=== PATIENT | female | born 1970 | race Caucasian/White ===

== ENCOUNTER → 2023-06-29 13:22 | Outpatient (REF) | payer OTHER, SELFPAY | LOC: HWWDC 13:22 | PROVIDERS: ATTENDING PHYSICIAN Nurse Practitioner Family | DX: Z12.31 Encounter for screening mammogram for malignant neoplasm of breast (principal) | CPT/HCPCS: 77063; 77067 ==

== ENCOUNTER → 2023-07-21 09:24 | Outpatient (REF) | payer OTHER, SELFPAY | LOC: WDC 09:24 | PROVIDERS: ATTENDING PHYSICIAN Nurse Practitioner Family | DX: R92.8 Other abnormal and inconclusive findings on diagnostic imaging of breast (principal) | CPT/HCPCS: 76642 ==

== ENCOUNTER → 2023-09-25 13:43 | Outpatient (REF) | payer OTHER, SELFPAY | LOC: HWRAD 13:43 | PROVIDERS: ATTENDING PHYSICIAN Nurse Practitioner Family | DX: F17.210 Nicotine dependence, cigarettes, uncomplicated (principal) | CPT/HCPCS: 71271 ==

== ENCOUNTER → 2023-12-24 09:33 | Outpatient (REF) | payer MEDICARE, SELFPAY | LOC: RAD 09:33 | PROVIDERS: ATTENDING PHYSICIAN Surgery; FAMILY PHYSICIAN Nurse Practitioner Family | DX: N13.2 Hydronephrosis with renal and ureteral calculous obstruction (principal) | CPT/HCPCS: 74018 ==

== ENCOUNTER 2023-12-26 23:59 | Emergency (ER) | payer MEDICARE, SELFPAY ==
[2023-12-27 00:02] VITALS: BP 146/74
[2023-12-27 00:30] LABS: Urine Albumin Negative (Neg - Trace); Urine Bilirubin Negative (Negative); Urine Character Clear (Clear); Urine Color Yellow; Urine Glucose Negative (Negative); Urine Ketone Negative (Negative); Urine Leukocyte Negative (Negative); Urine Nitrite Negative (Negative); Urine Occult Blood 1+ (Negative); Urine Urobilinogen Negative (Neg - 1+)
[2023-12-27 00:38] LABS: % Basophils 0.3 % (0-2); % Eosinophils 2.6 % (0-6); % Immature Granulocytes 0.5 % (0-0.5); % Lymphocytes 9.8 % (20.5-51.1); % Monocytes 8.5 % (1.7-9.3); % Neutrophils 78.3 % (42.2-75.2); Absolute Eosinophils 0.4 10^3/uL (0-0.7); Absolute Immature Granulocytes 0.1 10^3/uL (0-0.05); Absolute Lymphocytes 1.4 10^3/uL (1.2-3.4); Absolute Monocytes 1.2 10^3/uL (0.1-0.6); Absolute Neutrophils 11.4 10^3/uL (1.4-6.5); Hematocrit 40.2 % (37.0-47.0); Hemoglobin 13.8 g/dL (12.0-16.0); Mean Corp Hgb Conc. 34.3 g/dL (33.0-37.0); Mean Corpuscular Hgb 31.6 pg (27.0-31.0); Mean Platelet Volume 10.1 fL (7.4-10.4); Nucleated Red Blood Cells % 0 %; Platelet Count 391 10^3/uL (130-400); Red Blood Cell Count 4.37 10^6/uL (4.20-5.40); Red Cell Dist. Width 12.4 % (11.5-14.5); White Blood Cell Count 14.6 10^3/uL (4.8-10.8)
[2023-12-27 00:42] LABS: Urine White Cell 0-2 /HPF (0-5)
[2023-12-27 01:02] LABS: ALT (SGPT) 15 U/L (0-35); AST (SGOT) 16 U/L (14-36); Albumin 3.9 g/dl (3.5-5.0); Alkaline Phosphatase 104 U/L (38-126); Blood Urea Nitrogen 21 mg/dl (7-17); Calcium 9.1 mg/dl (8.4-10.2); Carbon Dioxide 22 mmol/L (22-30); Chloride 106 mmol/L (98-107); Glucose 125 mg/dl (70-99); Potassium 4.2 mmol/L (3.5-5.1); Sodium 142 mmol/L (135-145); Total Bilirubin 0.2 mg/dl (0.2-1.3); Total Protein 6.4 g/dl (6.3-8.2); eGFR > 60.00
--- NOTE | 2023-12-27 03:40 | ED.GENMED ---
History of Present Illness
General
Chief Complaint: Abdominal Pain
Source: patient and previous radiology exam (1 view abdominal x-ray performed yesterday)
Exam Limitations: none
Time Seen by Provider: 12/27/23 02:28
Nursing documentation reviewed up to this point in time: agreed with
History of Present Illness
History of Present Illness:
This is a 53-year-old woman with known history of kidney stones who has had intermittent left flank pain off and on for few weeks but over the past few days has noticed some generalized lower abdominal discomfort, lower abdominal bloating
accompanied with some constipation passing small round marble like stools. She also notes intermittent bilateral flank discomfort and some left upper quadrant discomfort as well. Tonight she developed a fever of 101.7 �F. She took Aleve prior to
arrival. She denies dysuria and urgency nor gross hematuria. She does have 1 previous episode of diverticulitis and is unsure if current symptoms feel similar.
She has had no nausea nor vomiting.
She has however been suffering with some chronic sinus issues, following with her PCP and thus far has had no relief despite 2 rounds of antibiotics, amoxicillin 1 month ago and then doxycycline early November. She just finished a course of oral
steroids. She is chronically maintained on Flonase as well as Claritin for her sinus issues.
She had an initial evaluation with urology on Thursday and underwent 1 view abdominal x-ray yesterday which shows questionable 1 mm calculus in the left mid ureter. No radiographic evidence of intrarenal calculi. Moderate stool throughout the colon.
Severe discogenic degenerative disease L4-L5.
Past History
Past History
ED Past Medical History: Hypothyroidism, Psychiatric and Other (Kidney stones, diverticulitis, chronic sinusitis)
ED Past Surgical History: Other (ear)
Social History
Tobacco: Non-smoker
Alcohol: None
Drug: None
Personal: Single
Living: with family
Family History
Family History: Other (Noncontributory)
Phy Exam
Physical Exam
Physical Exam:
GENERAL: 53-year-old woman appears her stated age, awake and alert, pleasant, appears in no acute distress. Borderline low-grade fever noted initially. Upon recheck she is afebrile.
EYE: pupils equal and reactive. anicteric
NECK: Supple, nontender, no meningismus, no significant adenopathy.
ENT: posterior pharynx is clear, oral mucosa is moist. Left TM with scant clear effusion without redness. Right TM is clear. Nares have moderately boggy pale blue turbinates without rhinorrhea nor mucopus.
CARDIAC: Regular rate and rhythm. no murmur.
LUNGS: Clear breath sounds bilaterally, no acute respiratory distress, no wheezes/rales/rhonchi
ABDOMEN: Soft, nondistended, mild generalized tenderness to the lower abdomen with deep palpation only, no r/g, no cvat. normoactive BS.
NEUROLOGICAL: Alert and oriented x3, no focal neuro deficits. Gait is diaz and steady.
SKIN: Warm and dry, normal color, skin intact. No rash.
MUSCULOSKELETAL: No C/C/E. peripheral pulses are full and equal b/l. No palpable tenderness.
PSYCH: Normal and appropriate interaction.
. 53-year-old woman appears her stated age, awake and alert, pleasant, appears in no acute distress.
Course
Orders/Labs/Results
Orders:
Orders
12/27/23 00:15
Complete Blood Count/With Diff Urgent
Comprehensive Metabolic Panel Urgent
Urinalysis Reflex To Culture Urgent
Date Specimen was Collected: 12/27/23
Time Specimen was Collected: 00:10
Urine Microscopic Reflex Cult Urgent
12/27/23 02:37
CT Abd/pelvis W Iv Cont Urgent
Comment:
Reason For Exam: gen lower abd pain, b/l flank pain, fever
12/27/23 06:03
Amoxicillin 875 mg/Clav 125 mg [Augmentin 875 mg/125 mg] 1 tablet PO NOW STA
Abnormal Lab Results
12/27/23
00:15
WBC 14.6 H 10^3/uL
(4.8-10.8)
MCH 31.6 H pg
(27.0-31.0)
Abs Immat Gran (auto) 0.1 H 10^3/uL
(0-0.05)
Absolute Neuts (auto) 11.4 H 10^3/uL
(1.4-6.5)
Absolute Monos (auto) 1.2 H 10^3/uL
(0.1-0.6)
Neutrophils % 78.3 H %
(42.2-75.2)
Lymphocytes % 9.8 L %
(20.5-51.1)
BUN 21 H mg/dl
(7-17)
Glucose 125 H mg/dl
(70-99)
Ur Occult Blood Reflex 1+ A
(Negative)
Urine RBC 3-6 A /HPF
(0-2)
12/27/23 00:15
12/27/23 00:15
Vital Signs
Initial and Last Documented VS:
Initial Vital Signs
Temp Pulse Resp BP Pulse Ox
99.3 F 110 20 146/74 99
12/27/23 00:02 12/27/23 00:02 12/27/23 00:02 12/27/23 00:02 12/27/23 00:02
Last Documented Vital Signs
Temp Pulse Resp BP Pulse Ox
99.3 F 110 20 146/74 99
12/27/23 00:02 12/27/23 00:02 12/27/23 00:02 12/27/23 00:02 12/27/23 00:02
MDM/Problems Addressed
Differential Diagnosis Includes:
Concern for ureteric stone, pyelonephritis, constipation, diverticulitis, less likely appendicitis, colitis.
Labs thus far reveal mildly elevated white blood cell count of 14.6.
Chemistries are unremarkable.
Urinalysis is positive for 3-6 RBCs otherwise unremarkable. No evidence of infection.
Will check CT of the abdomen and pelvis.
*Radiology
Radiology exam reviewed: radiology read reviewed (CAT scan shows moderate wall thickening of the mid sigmoid colon with small amount of stranding adjacent to diverticula, consistent with acute uncomplicated diverticulitis)
*Pulse Oximetry
Patient hypoxic: no
*Critical Care Note
Total Time (30-74mins, 75-104mins- exclusive of procedures): Not Applicable
Update Note
Update Note:
12/27/2023 0604 AM
CAT scan consistent with acute uncomplicated diverticulitis of the sigmoid colon. Moderate amount of stool within the colon as well. There is no obstruction, no intrarenal nor ureteric stones.
Will place patient on a course of Augmentin.
Recommend she limit her diet to clear liquids over the next 2 to 3 days, slowly advancing to bland soft diet. Once solids are introduced recommend she increase her fiber intake by adding Metamucil or FiberCon on a daily basis.
Will refer to GI for follow-up.
Return precautions discussed.
ED Attending Note
-
Portions of this chart may have been created with voice recognition software.� Occasional wrong word or��sound alike� substitutions may have occurred due to the inherent limitations of voice recognition software.
Discharge Plan
Departure
Patient Disposition: Home (Routine Discharge)
Date of Disposition: 12/27/23
Time of Disposition: 06:06
Patient with high blood pressure during this ER visit?: No
Condition: Good
Discharge Problem:
Acute sigmoid diverticulitis
Instructions: Clear Liquid Diet, Diverticulitis (DC)
Prescriptions:
New
amoxicillin-pot clavulanate 875-125 mg tablet
1 tab PO BID Qty: 20 0RF
No Action
levothyroxine 75 mcg Tablet
75 mcg PO DAILY
albuterol sulfate 90 mcg/actuation Hfa Aerosol Inhaler
2 puff INHALATION QID PRN (Reason: sob)
Zyrtec
1 tab PO DAILY PRN (Reason: allergies)
venlafaxine [Effexor XR] 37.5 mg Capsule,Extended Release 24hr
37.5 mg PO DAILY
fluticasone propionate [Flonase] 50 mcg/actuation [place],Suspension
1 spray INTRANASAL DAILY
tamsulosin [Flomax] 0.4 mg Capsule
0.4 mg PO DAILY
Referrals:
Cuca Burrows MD [Active] - Call in 1-3 days for appt
Karen Gonzalez CRNP [Family Provider] - Call in 1-3 days for appt
Interventions
Interventions:
*Risk Screen - Suicide Last Done: 12/27/23 00:05
*General Assessment Last Done: 12/27/23 03:37
*Neglect/Abuse Screening Last Done: 12/27/23 00:05
*ED COVID-19 Vaccine History Last Done: 12/27/23 00:05
RO-Edyajb-Nnvimtqhti Assessment Last Done: 12/27/23 03:37
Discharge Date and Time
Print Language: MALAY
[2023-12-27] MEDS: AUGMENTIN 875 MG/125 MG 1 TABLET PO (06:54)
[2023-12-27 07:03] VITALS: BP 118/78
== END 2023-12-27 07:07 | disposition home or self-care (01) ==
LOC: EMR 23:59
PROVIDERS: EMERGENCY PHYSICIAN Emergency Medicine; FAMILY PHYSICIAN Nurse Practitioner Family
DX: K57.32 Diverticulitis of large intestine without perforation or abscess without bleeding (principal); E03.9 Hypothyroidism, unspecified; J32.9 Chronic sinusitis, unspecified; M51.369 Other intervertebral disc degeneration, lumbar region without mention of lumbar back pain or lower extremity pain; F31.9 Bipolar disorder, unspecified; F32.A Depression, unspecified; F17.200 Nicotine dependence, unspecified, uncomplicated; Z87.442 Personal history of urinary calculi; Z79.899 Other long term (current) drug therapy; Z88.1 Allergy status to other antibiotic agents
CPT/HCPCS: 99284; 74177; 80053; 81003; 81015; 85025; Q9967

== ENCOUNTER 2024-01-07 17:23 | Inpatient (IN) | payer MEDICARE, OTHER, SELFPAY ==
[2024-01-07] VITALS (7 sets, daily range): BP systolic 109–130; BP diastolic 62–83; BMI 19.8
--- NOTE | 2024-01-07 12:41 | ED.GENMED ---
History of Present Illness
<Dede Glez PA-C - Last Filed: 01/07/24 16:33>
General
Chief Complaint: Abdominal Symptoms
Source: patient and records
Time Seen by Provider: 01/07/24 12:14
History of Present Illness
History of Present Illness:
53yoF with a history of hypothyroidism and depression presenting for evaluation of abdominal pain. Patient was seen in the ED on 12/27/[address] showed findings suspicious for mid sigmoid colon uncomplicated diverticulitis. She was
started on a 10 day course of Augmentin and she took the last dose of antibiotics yesterday morning. She is presenting with persistent abdominal discomfort and cramping primarily in the lower abdomen. The pain seems to have worsened since finishing
the antibiotic. She had a bowel movement earlier today which was normal. She denies any fevers, chills, vomiting, hematochezia, dysuria. No previous abdominal surgeries. She had a colonoscopy in 2018 which was reportedly normal.
Past History
<Dede Glez PA-C - Last Filed: 01/07/24 16:33>
Past History
ED Past Medical History: Hypothyroidism, Psychiatric and Other (Kidney stones, diverticulitis, chronic sinusitis)
ED Past Surgical History: Other (ear)
Social History
Tobacco: Non-smoker
Alcohol: None
Drug: None
Personal: Single
Living: with family
Family History
Family History: Other (Noncontributory)
Phy Exam
<Dede Glez PA-C - Last Filed: 01/07/24 16:33>
General Physical Exam
General Presentation: well appearing and no apparent distress
General age: appears stated age
General Skin: warm and dry
General Habitus: normal
General Mental: alert
ENT Exam
ENT Exam: normocephalic
Cardiovascular Exam
Cardiovascular Exam: regular rate/rhythm and no murmur
Pulmonary Exam
Pulmonary Exam: lungs clear, no respiratory distress, no crackles and no wheezing
Gastrointestinal Exam
Gastrointestinal Exam: soft, non distended and other (+Tenderness to RUQ, RLQ, and suprapubic region. Abdomen soft, non-distended. No rebound or guarding. )
Neurological Exam
Neurological Exam: alert
Bobby Coma Scale
Eye Opening: Spontaneous
Verbal Response: Oriented
Motor Response: Obeys Commands
GCS Total Score: 15
Skin Exam
Skin Exam: normal color and warm/dry
Psychiatric Exam
Psychiatric Exam: normal mood/affect
<Golden Palacios PA-C - Last Filed: 01/07/24 17:15>
Bobby Coma Scale
GCS Total Score: 15
Course
<Dede Glez PA-C - Last Filed: 01/07/24 16:33>
Orders/Labs/Results
Orders:
Orders
01/07/24 12:38
CT Abd/pel W Iv And Oral Contr Urgent
Comment:
Reason For Exam: Lower abd pain, recent diverticulitis flare
Iohexol [Omnipaque] See Protocol PO NOW STA
Ketorolac [Toradol] 15 mg IV NOW STA
01/07/24 12:51
Complete Blood Count/With Diff Urgent
Comprehensive Metabolic Panel Urgent
Lipase Urgent
01/07/24 13:03
Urinalysis Reflex To Culture Urgent
Date Specimen was Collected: 01/07/24
Time Specimen was Collected: 12:57
Urine Microscopic Reflex Cult Urgent
01/07/24 16:27
Ciprofloxacin 400 mg/[id number] [Cipro 400 mg] 200 ml IV NOW
MetroNIDAZOLE 500 MG/100 ML [Flagyl 500 mg] 100 ml IV NOW
01/07/24 17:08
Admit/Transfer Patient As Directed
Co-Sign Provider:
Level of Care: Inpatient admission
Assign to:: Medical/Surgical
Physician / Group: Nata Baker
Diagnosis: acute diverticulitis
Reason for Hospitalization: acute diverticulitis, failure outpatient treatment
Expected length of stay greater than two midnights?: Yes
ELOS- Estimated Length of Stay in days: 3
I certify the patient meets the requirements for IP care: Yes
PRN Pain Medication Management As Directed
May give lesser potent ordered pain med per pt: Yes
preference::
Protocol:: Medication orders for pain may be administered in a
manner that supports deferring to patient preference
when the pt is:
- Requesting an ordered lesser potent pain medication.
Least to most potent pain medications are defined
as: acetaminophen < NSAID < tramadol < opioids
(morphine, oxycodone, hydromorphone).
- Requesting a lesser dose of the same medication IF
ORDERED.
- Requesting a less intrusive route of administration
if both routes are prescribed by the provider (PO <
IV).
01/07/24 17:10
Code Status As Directed
Resuscitation Status: Full Code
Abnormal Lab Results
01/07/24 01/07/24
12:51 13:03
MCH 32.3 H pg
(27.0-31.0)
Total Bilirubin 0.1 L mg/dl
(0.2-1.3)
Ur Occult Blood Reflex 1+ A
(Negative)
Leukocyte Esterase Rfl Trace A
(Negative)
Urine Bacteria (Reflex) Few A
(Negative)
01/07/24 12:51
01/07/24 12:51
Vital Signs
Initial and Last Documented VS:
Initial Vital Signs
Temp Pulse BP Pulse Ox
98.4 F 85 126/83 98
01/07/24 11:22 01/07/24 11:22 01/07/24 11:22 01/07/24 11:22
Last Documented Vital Signs
Temp Pulse Resp BP Pulse Ox
98.4 F 62 18 122/62 96
01/07/24 11:22 01/07/24 17:11 01/07/24 17:11 01/07/24 17:11 01/07/24 17:11
<Golden Palacios PA-C - Last Filed: 01/07/24 17:15>
Orders/Labs/Results
Orders:
Orders
01/07/24 12:38
CT Abd/pel W Iv And Oral Contr Urgent
Comment:
Reason For Exam: Lower abd pain, recent diverticulitis flare
Iohexol [Omnipaque] See Protocol PO NOW STA
Ketorolac [Toradol] 15 mg IV NOW STA
01/07/24 12:51
Complete Blood Count/With Diff Urgent
Comprehensive Metabolic Panel Urgent
Lipase Urgent
01/07/24 13:03
Urinalysis Reflex To Culture Urgent
Date Specimen was Collected: 01/07/24
Time Specimen was Collected: 12:57
Urine Microscopic Reflex Cult Urgent
01/07/24 16:27
Ciprofloxacin 400 mg/[id number] [Cipro 400 mg] 200 ml IV NOW
MetroNIDAZOLE 500 MG/100 ML [Flagyl 500 mg] 100 ml IV NOW
01/07/24 17:08
Admit/Transfer Patient As Directed
Co-Sign Provider:
Level of Care: Inpatient admission
Assign to:: Medical/Surgical
Physician / Group: Nata Baker
Diagnosis: acute diverticulitis
Reason for Hospitalization: acute diverticulitis, failure outpatient treatment
Expected length of stay greater than two midnights?: Yes
ELOS- Estimated Length of Stay in days: 3
I certify the patient meets the requirements for IP care: Yes
PRN Pain Medication Management As Directed
May give lesser potent ordered pain med per pt: Yes
preference::
Protocol:: Medication orders for pain may be administered in a
manner that supports deferring to patient preference
when the pt is:
- Requesting an ordered lesser potent pain medication.
Least to most potent pain medications are defined
as: acetaminophen < NSAID < tramadol < opioids
(morphine, oxycodone, hydromorphone).
- Requesting a lesser dose of the same medication IF
ORDERED.
- Requesting a less intrusive route of administration
if both routes are prescribed by the provider (PO <
IV).
01/07/24 17:10
Code Status As Directed
Resuscitation Status: Full Code
Abnormal Lab Results
01/07/24 01/07/24
12:51 13:03
MCH 32.3 H pg
(27.0-31.0)
Total Bilirubin 0.1 L mg/dl
(0.2-1.3)
Ur Occult Blood Reflex 1+ A
(Negative)
Leukocyte Esterase Rfl Trace A
(Negative)
Urine Bacteria (Reflex) Few A
(Negative)
01/07/24 12:51
01/07/24 12:51
Vital Signs
Initial and Last Documented VS:
Initial Vital Signs
Temp Pulse BP Pulse Ox
98.4 F 85 126/83 98
01/07/24 11:22 01/07/24 11:22 01/07/24 11:22 01/07/24 11:22
Last Documented Vital Signs
Temp Pulse Resp BP Pulse Ox
98.4 F 62 18 122/62 96
01/07/24 11:22 01/07/24 17:11 01/07/24 17:11 01/07/24 17:11 01/07/24 17:11
<Dede Glez PA-C - Last Filed: 01/07/24 16:33>
MDM/Problems Addressed
Differential Diagnosis Includes:
53yoF here with ongoing abd pain/cramping since being diagnosed with diverticulitis on 12/27/23. Finished abx yesterday. Pain now seems worse. No f/c. She is afebrile and hemodynamically stable. She is well-appearing in no acute distress. No
signs of peritonitis on abdominal exam. Differential diagnosis includes but is not limited to: Diverticulitis, intra-abdominal abscess, perforation, appendicitis, colitis, nonspecific abdominal pain
Initial ED plan: Check abdominal labs, UA, and repeat CT abdomen with IV/PO contrast. IV Toradol for pain.
<Dede Glez PA-C - Last Filed: 01/07/24 16:33>
*Critical Care Note
Total Time (30-74mins, 75-104mins- exclusive of procedures): Not Applicable
<Golden Palacios PA-C - Last Filed: 01/07/24 17:15>
*Radiology
Radiology exam reviewed: radiology read reviewed
<Golden Palacios PA-C - Last Filed: 01/07/24 17:15>
Patient Management
Discussion with other providers: Hospitalist
Escalation/DeEscalation of care consider admission/obs:
1400 p.m. -patient received in signout pending CT scan and reevaluation
CT scan was reviewed which showed still active areas of diverticulitis however improved. On reevaluation patient does state that the pain is improved but she still feels discomfort and pressure within the lower part of her abdomen. Patient
completed her 10-day course of Augmentin. Given her continued discomfort we discussed options of IV antibiotics versus changing oral antibiotics and given her continued discomfort and CT findings patient felt more comfortable being admitted for IV
antibiotics which I do think is reasonable given she already completed the 10-day course of Augmentin. Hospitalist team was notified and accepts for continued evaluation and treatment.
ED Attending Note
<Dede Glez PA-C - Last Filed: 01/07/24 16:33>
-
Portions of this chart may have been created with voice recognition software.� Occasional wrong word or��sound alike� substitutions may have occurred due to the inherent limitations of voice recognition software.
Discharge Plan
Departure
Patient Disposition: Admit
Date of Disposition: 01/07/24
Time of Disposition: 16:27
Presentation/result/management discussed w/ accepting MD/DO: Hospitalist
Discharge Problem:
Diverticulitis
Prescriptions:
No Action
levothyroxine 75 mcg Tablet
75 mcg PO DAILY
albuterol sulfate 90 mcg/actuation Hfa Aerosol Inhaler
2 puff INHALATION R Q6HPRN PRN (Reason: sob)
venlafaxine [Effexor XR] 37.5 mg Capsule,Extended Release 24hr
37.5 mg PO HS
fluticasone propionate [Flonase] 50 mcg/actuation [place],Suspension
1 spray INTRANASAL DAILYPRN PRN (Reason: congestion)
tamsulosin [Flomax] 0.4 mg Capsule
0.4 mg PO DAILY
cetirizine [Zyrtec] 10 mg Tablet
10 mg PO DAILYPRN PRN (Reason: allergies)
Theragen Tablet
1 tab PO DAILY
Fiber Gummies 2 gram Tablet,Chewable
6 g PO DAILY
Referrals:
Karen Gonzalez CRNP [Family Provider] -
Interventions
Interventions:
*Risk Screen - Suicide Last Done: 01/07/24 11:24
*General Assessment Last Done: 01/07/24 11:24
*Neglect/Abuse Screening Last Done: 01/07/24 11:24
*ED COVID-19 Vaccine History Last Done: 01/07/24 14:30
ZD-Jpwepx-Dytlpcupul Assessment Last Done: 01/07/24 14:30
Discharge Date and Time
Print Language: ROMANIAN
[2024-01-07] MEDS: OMNIPAQUE 50 ML PO (12:58)
[2024-01-07] MEDS: TORADOL 15 MG IV (12:58)
[2024-01-07 13:06] LABS: % Basophils 0.9 % (0-2); % Eosinophils 3.2 % (0-6); % Immature Granulocytes 0.2 % (0-0.5); % Lymphocytes 21.1 % (20.5-51.1); % Monocytes 7.1 % (1.7-9.3); % Neutrophils 67.5 % (42.2-75.2); Absolute Basophils 0.1 10^3/uL (0-0.2); Absolute Eosinophils 0.3 10^3/uL (0-0.7); Absolute Lymphocytes 1.9 10^3/uL (1.2-3.4); Absolute Monocytes 0.6 10^3/uL (0.1-0.6); Absolute Neutrophils 5.9 10^3/uL (1.4-6.5); Hematocrit 41.1 % (37.0-47.0); Hemoglobin 14.1 g/dL (12.0-16.0); Mean Corp Hgb Conc. 34.3 g/dL (33.0-37.0); Mean Corpuscular Hgb 32.3 pg (27.0-31.0); Mean Corpuscular Volume 94.1 fL (81.0-99.0); Mean Platelet Volume 9.7 fL (7.4-10.4); Nucleated Red Blood Cells % 0 %; Platelet Count 385 10^3/uL (130-400); Red Blood Cell Count 4.37 10^6/uL (4.20-5.40); Red Cell Dist. Width 12.2 % (11.5-14.5); White Blood Cell Count 8.8 10^3/uL (4.8-10.8)
[2024-01-07 13:10] LABS: Urine Albumin Negative (Neg - Trace); Urine Bilirubin Negative (Negative); Urine Character Clear (Clear); Urine Color Yellow; Urine Glucose Negative (Negative); Urine Ketone Negative (Negative); Urine Leukocyte Trace (Negative); Urine Nitrite Negative (Negative); Urine Occult Blood 1+ (Negative); Urine Urobilinogen Negative (Neg - 1+); Urine pH 6.5 (5.0-9.0)
[2024-01-07 13:20] LABS: Urine Squamous Cell 0-2 /LPF (Few)
[2024-01-07 13:21] LABS: Urine Bacteria Few (Negative); Urine Red Blood Cell 0-2 /HPF (0-2); Urine White Cell 0-2 /HPF (0-5)
[2024-01-07 13:26] LABS: ALT (SGPT) 33 U/L (0-35); AST (SGOT) 28 U/L (14-36); Alkaline Phosphatase 86 U/L (38-126); Blood Urea Nitrogen 16 mg/dl (7-17); Calcium 9.1 mg/dl (8.4-10.2); Carbon Dioxide 25 mmol/L (22-30); Chloride 105 mmol/L (98-107); Glucose 82 mg/dl (70-99); Potassium 4.3 mmol/L (3.5-5.1); Sodium 141 mmol/L (135-145); Total Bilirubin 0.1 mg/dl (0.2-1.3); Total Protein 6.5 g/dl (6.3-8.2); eGFR > 60.00
[2024-01-07 13:55] LABS: Lipase 69 U/L (23-300)
--- NOTE | 2024-01-07 16:46 | HPS.HSE ---
Family Physician
-
Family Physician: TANA Spain
Chief Complaint
-
abdominal pain
History of Present Illness
Ms. Martha Gomez is a 53 yo woman with history nephrolithiasis, smoker, depression, ER visit 12/26 where diagnosed with acute uncomplicated diverticulitis and discharged on Augmentin, presents to the ER with persistent pain and discomfort.
Patient was seen in the ER on 12/26 with lower abdominal discomfort and a fever of 101.7. She was found to have uncomplicated diverticulitis and discharged on Augmentin BID. Since that time she has not been febrile, but she has continued to have
abdominal pain. She states she has been eating and drinking OK. She had a normal BM this morning, not black or bloody.
No chest pain or shortness of breath. No LE swelling. No rash.
Medical History
Past Medical History
Past Medical History: Reports Other (nephrolithiasis )
Past Surgical History: Reports Other (ear surgery)
Social History
Tobacco: Smoker (4 cigarettes/day )
Alcohol: None
Family History
Family History: Not pertinent
Allergies / Home Medications
Allergies reflects when Allergies were last updated in [facility].
Home Medications with original date entered in [facility]
Allergy/Medication List:
Allergies
Allergy/AdvReac Type Severity Reaction Status Date / Time
erythromycin base AdvReac Nausea / Verified 12/27/23 00:03
Vomiting
Home Medications
albuterol sulfate 90 mcg/actuation aerosol inhaler 2 puff inhalation R Q6HPRN PRN sob 12/09/22
levothyroxine 75 mcg tablet 75 mcg PO DAILY Thyroid 12/09/22
fluticasone propionate 50 mcg/actuation nasal spray,suspension 1 spray intranasal DAILYPRN PRN congestion 12/27/23
tamsulosin 0.4 mg capsule (Flomax) 0.4 mg PO DAILY Urinary Issue 12/27/23
venlafaxine 37.5 mg capsule,extended release 24 hr (Effexor XR) 37.5 mg PO HS depression/anxiety 12/27/23
cetirizine 10 mg tablet (Zyrtec) 10 mg PO DAILYPRN PRN allergies 01/07/24
inulin 2 gram chewable tablet (Fiber Gummies) 6 g PO DAILY Supplement 01/07/24
therapeutic multivitamin 1 tab PO DAILY Supplement 01/07/24
Review of Systems
-
History Source: Patient
A 12 point ROS was completed and negative except as noted: Yes
Physical Exam
Vital Signs
Vital Signs
Temp Pulse Resp BP Pulse Ox
98.4 F 71 16 123/65 99
01/07/24 11:22 01/07/24 16:00 01/07/24 16:00 01/07/24 16:00 01/07/24 16:00
Physical Exam
General: No Apparent Distress and Other (underweight)
HEENT: PERRLA
Respiratory: Clear; No Wheezes
Cardiac: S1/S2 and Regular Rhythm
GI: Other (mildly tender lower quadrants, no rebound or guarding )
Musculoskeletal: No Edema
Skin: Warm and Dry; No Rash
Neuro: AO x 3
Psych: Calm
Laboratory Results
-
01/07/24 12:51
01/07/24 12:51
Laboratory Results
Total Bilirubin 0.1 mg/dl (0.2-1.3) L 01/07/24 12:51
AST 28 U/L (14-36) 01/07/24 12:51
ALT 33 U/L (0-35) 01/07/24 12:51
Alkaline Phosphatase 86 U/L (38-126) 01/07/24 12:51
Lipase 69 U/L (23-300) 01/07/24 12:51
Data Reviewed
-
Diagnostic Radiology: Report Reviewed by me
Lab Data: Labs Reviewed by me
Impression/Plan
-
Ms. Martha Gomez is a 53 yo woman with history nephrolithiasis, ER visit 12/26 where diagnosed with acute uncomplicated diverticulitis and discharged on Augmentin presents to the ER with persistent pain and discomfort.
Triage VS: T 98.4, BP 126/83, P 85, SpO2 98% RA
LABS: WBC 8.8, Hg 14.1, PLT 385, Na 141, K+ 4.3, Cl 105, Cr 0.7, Glucose 82, T. Bili 0.1, AST 28, ALT 33, Alk Phos 86
CT A/P
IMPRESSION: CT findings compatible with diverticulitis involving the sigmoid colon in the posterior pelvis. Inflammatory fat stranding appears slightly improved compared to CT examination of December 27, 2023, although persistent fat stranding
suggest persistent inflammation. No evidence of abscess. No evidence of free intraperitoneal air.
Trace amount of pleural fluid within the posterior and inferior aspect of both hemithoraces. Mild dependent atelectasis in the posterior lower lungs.
Small low-density hepatic lesion in the anterior aspect of the medial segment, stable dating back to CT examination of October 18, 2022.
Bony degenerative changes as described.
MAR: IV Cipro, Toradol, Flagyl
Acute Diverticulitis
-repeat CT with persistent inflammation, slightly improved. No abscess or free intraperitoneal air
-admit to med/surg
-will continue Cipro/Flagyl
-clears for this evening
-IV Toradol PRN pain
-ID consult given failure to improve on Augmentin
-last colonoscopy 2017 - referral to GI post discharge
Hypothyroidism
-[employer] Synthroid
Tobacco use
-4 cigarettes/day
-low dose nicotine patch
Anxiety/Depression
-[employer] Effexor
Hx Nephrolithiasis
-Ok to hold flomax as no stone seen on CT today (small stone recently seen)
DVT PPx lovenox subQ
FULL CODE
[2024-01-07] MEDS: FLAGYL 500 MG 100 IV (17:12)
[2024-01-07] MEDS: LOVENOX 40 MG SC (19:39)
[2024-01-07] MEDS: NICODERM TRANSDERMAL 7 MG TRANSDERM (19:39)
[2024-01-07] MEDS: CIPRO 400 MG 200 IV (19:39)
[2024-01-07] MEDS: EFFEXOR XR 37.5 MG PO (21:45)
[2024-01-07] MEDS: TORADOL 10 MG IV (21:51)
[2024-01-08] MEDS: FLAGYL 500 MG 100 IV ×2 (01:18→10:26)
[2024-01-08] MEDS: TYLENOL 650 MG PO (01:23)
[2024-01-08] MEDS: SYNTHROID 75 MCG PO (05:27)
[2024-01-08] MEDS: TORADOL 10 MG IV ×2 (05:32→21:54)
[2024-01-08 06:09] LABS: % Basophils 1.3 % (0-2); % Eosinophils 4.6 % (0-6); % Immature Granulocytes 0.3 % (0-0.5); % Lymphocytes 20.1 % (20.5-51.1); % Monocytes 7.3 % (1.7-9.3); % Neutrophils 66.4 % (42.2-75.2); Absolute Basophils 0.1 10^3/uL (0-0.2); Absolute Eosinophils 0.4 10^3/uL (0-0.7); Absolute Lymphocytes 1.6 10^3/uL (1.2-3.4); Absolute Monocytes 0.6 10^3/uL (0.1-0.6); Absolute Neutrophils 5.2 10^3/uL (1.4-6.5); Hemoglobin 14.1 g/dL (12.0-16.0); Mean Corp Hgb Conc. 33.6 g/dL (33.0-37.0); Mean Corpuscular Hgb 32.3 pg (27.0-31.0); Mean Corpuscular Volume 96.1 fL (81.0-99.0); Nucleated Red Blood Cells % 0 %; Platelet Count 380 10^3/uL (130-400); Red Blood Cell Count 4.37 10^6/uL (4.20-5.40); Red Cell Dist. Width 12.2 % (11.5-14.5); White Blood Cell Count 7.9 10^3/uL (4.8-10.8)
[2024-01-08 06:32] LABS: Blood Urea Nitrogen 12 mg/dl (7-17); Calcium 9.2 mg/dl (8.4-10.2); Carbon Dioxide 28 mmol/L (22-30); Chloride 105 mmol/L (98-107); Estimated Creatinine Clearance 67 ml/min; Glucose 90 mg/dl (70-99); Magnesium 2.2 mg/dl (1.6-2.3); Potassium 4.6 mmol/L (3.5-5.1); Sodium 142 mmol/L (135-145); eGFR > 60.00
[2024-01-08 07:38] VITALS: BP 111/67
[2024-01-08] MEDS: NICODERM TRANSDERMAL 7 MG TRANSDERM (07:55)
[2024-01-08] MEDS: CIPRO 500 MG PO (07:55)
--- NOTE | 2024-01-08 08:37 | W.PN.UPDATE ---
Update Note
Progress Note Update
53-year-old female with abdominal pain. Patient had a CT scan on 12/27/2023 and started on a 10-day course of Augmentin presented back with persistent abdominal discomfort.
I personally performed a history and physical exam of the patient and discussed management with the resident. I reviewed the resident's note and agree with the documented findings and plan of care HPI/CC except for changes in my documentation
CT abdomen and pelvis-diverticulitis involving sigmoid colon in the posterior pelvis. Inflammatory fat stranding slightly improved compared to the prior CT on December 27, 2023, although persistent fat stranding suggest persistent limitation. No
evidence of abscess or intra peritoneal air. Trace pleural fluid within the posterior inferior aspect of both hemithoraces. Mild dependent atelectasis at the posterior lower lungs. Small low-dose intensity hepatic lesion in the anterior aspect of
the medial segment
CVS: S1-S2 normal
Chest: CTA B/L
Abdomen: Soft, NT , Bowel sounds present
Extremities: No edema, normal pulses
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
# Acute diverticulitis
Was on Augmentin as outpatient
Now started on Cipro and Flagyl
I will switch Cipro to Levaquin to have better coverage of Gram Positive bacteria also
Colonoscopy in 2018 was reportedly normal
Colorectal eval given persistent pain which made her come back.
Pain much better
Advance diet
# Hypothyroidism-continue Synthroid
# Anxiety depression-continue Effexor
# Hematuria-microscopic
# Nephrolithiasis
# Smoker-cessation counseling
# DVT prophylaxis-Lovenox
# Full code
If better will discharge tomorrow
--- NOTE | 2024-01-08 09:33 | CON.ID ---
Addendum entered and electronically signed by Sanju Gamez DO 01/08/24 13:39:
I personally performed a history and physical exam of the patient and discussed management with the resident. I reviewed the resident's note and agree with the documented findings and plan of care HPI/CC.
Overall, patient reports she is feeling better, with marked improvement in abdominal discomfort.
Continue with levofloxacin and metronidazole. Would treat for an additional 7 to 10 days.
Will need follow-up with [facility] as an outpatient.
Original Note:
Consultation
-
Requesting Provider: Dr. Nata Baker
Performing Provider: /
Reason for Consultation: Diverticulitis
Chief Complaint / Past History
Chief Complaint
Lower abdominal pain
History of Present Illness
This is a 53-year-old female patient with past medical history of hypothyroidism, bipolar/depression, nephrolithiasis who presented to the ED with concerns of lower abdominal pain. Her abdominal pain started around a month ago intermittently. Around
2 weeks ago she had symptoms of sinusitis. She had presented to her PCP at that time who prescribed her amoxicillin which had not provided patient with any relief. Few days later she was then prescribed doxycycline which also did not help and was
then transition to prednisone taper. She states that she still continued to have nasal congestion and her abdominal pain was very mild during this time.
On 12/26 she had a fever of 101.7 along with moderate abdominal pain for which a CT scan abdomen was done showing acute uncomplicated diverticulitis of the sigmoid colon. She was discharged with Augmentin for 10 days. Her symptoms failed to
resolve and she presented to the ED yesterday with intermittent cramping lower abdominal which is radiating to the lower back which is not associated with any nausea or vomiting. She is afebrile. She still continues to have mild headaches and
nasal congestion. Bowel movements are regular.
Past History
Past Medical History: Hypothyroidism, Psychiatric (Bipolar/depression) and Other (Nephrolithiasis, cholesteatoma)
Past Surgical History: Other (Cholesteatoma related surgery in ear)
Allergy History:
erythromycin base Allergy (Verified 01/07/24 18:37)
Nausea / Vomiting
Social History
Tobacco: Smoker (Currently smokes 4 cigarettes/day, has been smoking for 40 years initially with 1 pack a day then cut down to 4 cigarettes recently.)
Alcohol: None
Drug: None
Living: Alone
Employment: Not Employed (On disability)
Family History
Family History: Not Pertinent
Review of Systems
Review of Systems
General: Negative Fever or Chills
Cardiovascular: Negative Chest Pain
Gasteroenterology: Negative Nausea or Vomiting
Neurological: Headache
All systems: All other systems were reviewed and were negative
Vital Signs
Temp Pulse Resp BP Pulse Ox
97.9 F 61 16 111/67 95
01/08/24 07:38 01/08/24 07:38 01/08/24 07:38 01/08/24 07:38 01/08/24 07:38
Physical Exam
Lab / Diagnostic Study Results
01/08/24 05:26
01/08/24 05:26
Abs Immat Gran (auto) 0.0 10^3/uL (0-0.05) 01/08/24 05:26
Absolute Neuts (auto) 5.2 10^3/uL (1.4-6.5) 01/08/24 05:26
Absolute Lymphs (auto) 1.6 10^3/uL (1.2-3.4) 01/08/24 05:26
Absolute Monos (auto) 0.6 10^3/uL (0.1-0.6) 01/08/24 05:26
Absolute Basos (auto) 0.1 10^3/uL (0-0.2) 01/08/24 05:26
Immature Gran % 0.3 % (0-0.5) 01/08/24 05:26
Neutrophils % 66.4 % (42.2-75.2) 01/08/24 05:26
Lymphocytes % 20.1 % (20.5-51.1) L 01/08/24 05:26
Monocytes % 7.3 % (1.7-9.3) 01/08/24 05:26
Eosinophils % 4.6 % (0-6) 01/08/24 05:26
Basophils % 1.3 % (0-2) 01/08/24 05:26
Ur Squamous Epith Cells 0-2 /LPF (Few) 01/07/24 13:03
Assessment / Plan
Impression/Assessment:
Acute uncomplicated diverticulitis
Hx of nephrolithiasis
Hypothyroidism
Current smoker
Recommendations:
�Afebrile
� WBC 8.8 (initially 14 on 12/26), CR 0.8
�CT abdomen: diverticulitis involving the sigmoid colon in the posterior pelvis. Inflammatory fat stranding appears slightly improved compared to CT examination of December 27, 2023, although persistent fat stranding suggest persistent inflammation.
No evidence of abscess. No evidence of free intraperitoneal air.
�Initally as on ciprofloxacin and Flagyl---> changed to levaquin and flagy
-Contine current abx regime of levaquine and flagy
-Monitor temperature curve and white blood count
--- NOTE | 2024-01-08 11:39 | W.PN.HOSP.TC ---
Today's Communication/Plan
-
Advance diet
Continue antibiotics, ceftriaxone switched to Levaquin
Pain management
Assessment / Plan
Assessment / Plan
Impression: 53-year-old female with PMH of uncomplicated diverticulitis, nephrolithiasis, depression who presented to ED on 01/07/2024. She was recently discharged 12/26 from this hospital on Augmentin twice daily, after being diagnosed of
uncomplicated diverticulitis and has continued to have abdominal pain without fever or change in BM. She denies chest pain, black stools, bloody stools, edema, rash, nausea, vomiting, or shortness of breath. She reports that patient been eating
and drinking okay and does not have any urinary symptoms.
Impression/plan:
#Acute diverticulitis
-Remains afebrile.
-CT abdomen/pelvis 01/07/2024 negative for abscess and free intraperitoneal air.
-ID and colorectal on board.
-Was on Augmentin outpatient, now on Levaquin and Flagyl.
-Advance diet to low residue.
-Follow fever curve
#Hypothyroidism
-Continue Synthroid
#Anxiety/depression
-Controlled on Effexor.
#History of nephrolithiasis
-Hold Flomax
DVT PPx-Lovenox
CODE STATUS: Full code
Data
CT abdomen and pelvis 01/07/2024:
CT findings compatible with diverticulitis involving the sigmoid colon in the posterior pelvis. Inflammatory fat stranding appears slightly improved compared to CT examination of December 27, 2023, although persistent fat stranding suggest persistent
inflammation. No evidence of abscess. No evidence of free intraperitoneal air.
Trace amount of pleural fluid within the posterior and inferior aspect of both hemithoraces. Mild dependent atelectasis in the posterior lower lungs.
Small low-density hepatic lesion in the anterior aspect of the medial segment, stable dating back to CT examination of October 18, 2022.
Bony degenerative changes as described.
Anticipated Discharge: 24 - 48 hours
Subjective/Interval History
-
Date of Service: January 08, 2024
Patient seen and examined. Reports that her abdominal pain has resolved. Denies fever, chills, nausea, vomiting, diarrhea, urinary symptoms. He does not have any chest pain today or shortness of breath.
Objective Data
-
Labs:
Laboratory Results
01/08/24
05:26
WBC 7.9
Hgb 14.1
Hct 42.0
Plt Count 380
Sodium 142
Potassium 4.6
Chloride 105
Carbon Dioxide 28
BUN 12
Creatinine 0.8
Glucose 90
Calcium 9.2
Vital Signs:
Vital Signs
Temp Pulse Resp BP Pulse Ox
97.9 F 61 16 111/67 95
01/08/24 07:38 01/08/24 07:38 01/08/24 07:38 01/08/24 07:38 01/08/24 07:38
Review of Systems
-
History Source: Patient
All other systems: Reviewed and negative
Physical Exam
-
General: Well Developed, No Apparent Distress and Comfortable
HEENT: Normocephalic, Atraumatic and Moist Mucous Membranes
Respiratory: Clear to Auscultation
Cardiac: Regular Rhythm and S1/S2; Negative Murmur, Rub or Gallop
GI: Soft, Nontender, Nondistended and Normal Bowel Sounds; Negative Organomegaly
Rectal: Deferred by Provider
Musculoskeletal: No Clubbing, No Cyanosis and No Edema
Skin: Warm; Negative Rash
Neuro: Awake, Alert, AO x 3 and Nonfocal/Grossly Intact
Psych: Calm
Data Reviewed
-
CT Scan: Report Reviewed by me and Discussed with Physician
Labs: Labs Reviewed by me and Discussed with Physician
Old Records: Reviewed
--- NOTE | 2024-01-08 12:50 | CON.CRS ---
Consultation
-
Date/Time Consultation Requested: 01/08/2024, 08: 44
Date/Time Consultation Performed: 01/08/2024, 9:30 AM
Requesting Provider: Ellen Vincent MD
Performing Provider: Vick Martinez MD
Reason for Consultation: abdominal pain
Medical History
-
Chief Complaint: Abdominal pain
History of Present Illness:
53-year-old female with a prior attack of diverticulitis in 2007 and more recently on about 2 weeks ago presents to [facility] ER complaining of continuing abdominal pain. She was seen in our ER on 12/26/2023 complaining of abdominal pain
and she was found to have uncomplicated sigmoid diverticulitis on CT scan and was discharged with p.o. antibiotics. She has persistent pain which led her to come back to the ER. Associated with the abdominal pain is lower pelvic cramping and back
pain. She denies any fevers or chills at home. She denies nausea or vomiting. Her first attack was in 2007 and she was hospitalized at [facility] in [place]. She had a colonoscopy in 2018 which was normal, according to the
patient, and did not have any polyps. She has no family history of Crohn's disease. Her only abdominal surgery was a hysterectomy years ago.
On admission her WBC is 7.9. She has remained afebrile. CT of the abdomen and pelvis performed yesterday showed diverticulitis involving the sigmoid colon and posterior pelvis. Inflammatory fat stranding has slightly improved compared to CT of
December 27, 2023. There is no abscess or free intraperitoneal air. We have been consulted for further surgical opinion.
Past Medical History
Past Medical History: Other (nephrolithiasis)
Past Surgical History: Other (ear surgery)
Social History
Tobacco: Smoker (4 cigarettes)
Alcohol: None
Family History
Family History: Reviewed & Not Pertinent
Allergies / Home Medications
Allergy/AdvReac Type Severity Reaction Status Date / Time
erythromycin base Allergy Nausea / Verified 01/07/24 18:37
Vomiting
�Medication �Instructions �Recorded �Confirmed �Type
albuterol sulfate 90 mcg/actuation 2 puff inhalation R Q6HPRN PRN sob 12/09/22 01/07/24 History
aerosol inhaler
levothyroxine 75 mcg tablet 75 mcg PO DAILY Thyroid 12/09/22 01/07/24 History
fluticasone propionate 50 1 spray intranasal DAILYPRN PRN 12/27/23 01/07/24 History
mcg/actuation nasal congestion
spray,suspension
tamsulosin 0.4 mg capsule (Flomax) 0.4 mg PO DAILY Urinary Issue 12/27/23 01/07/24 History
venlafaxine 37.5 mg 37.5 mg PO HS depression/anxiety 12/27/23 01/07/24 History
capsule,extended release 24 hr
(Effexor XR)
cetirizine 10 mg tablet (Zyrtec) 10 mg PO DAILYPRN PRN allergies 01/07/24 01/07/24 History
inulin 2 gram chewable tablet 6 g PO DAILY Supplement 01/07/24 01/07/24 History
(Fiber Gummies)
therapeutic multivitamin 1 tab PO DAILY Supplement 01/07/24 01/07/24 History
Review of Systems
-
History Source: Patient
Abdomen/GI: Abdominal Pain
A 10 point review of systems was completed, and was negative except as per HPI.
Physical Exam
Vital Signs
Temp 97.9 F 01/08/24 07:38
Pulse 61 01/08/24 07:38
Resp Rate 16 01/08/24 07:38
Blood pressure 111/67 01/08/24 07:38
SaO2 95 01/08/24 07:38
01/07/24 01/08/24 01/09/24
06:59 06:59 06:59
Actual Weight 52.2 kg
Body Mass Index (BMI) 19.8
Lab Results / Allergies
01/08/24 05:26
01/08/24 05:26
WBC 7.9 10^3/uL (4.8-10.8) 01/08/24 05:26
Hgb 14.1 g/dL (12.0-16.0) 01/08/24 05:26
Hct 42.0 % (37.0-47.0) 01/08/24 05:26
Plt Count 380 10^3/uL (130-400) 01/08/24 05:26
Abs Immat Gran (auto) 0.0 10^3/uL (0-0.05) 01/08/24 05:26
Neutrophils % 66.4 % (42.2-75.2) 01/08/24 05:26
Allergy/AdvReac Type Severity Reaction Status Date / Time
erythromycin base Allergy Nausea / Verified 01/07/24 18:37
Vomiting
Physical Exam
General: Well Developed and No Apparent Distress
GI: Soft, Non Tender and Tender ( mild lower abdominal)
Neuro: AO x 3
Psych: Calm
Data Reviewed
-
CT Scan: Image Personally Visualized and interpreted, Report Reviewed by me and Discussed with Patient
Labs: Labs Reviewed by me, Discussed with Physician and Discussed with Patient
Old Records: Reviewed
Assessment / Plan
-
Assessment: 53-year-old female, with 1 prior attack of diverticulitis, presents with abdominal pain found to have diverticulitis in the sigmoid colon that has continued since December 27, 2023
Plan:
-No plans for surgery at this time
-Advance diet to low residue
-Continue IV antibiotics
-May require elective surgery given her prior attacks. She will follow-up in the office with Dr. Martinez to discuss elective robotic surgery in the future.
-Will follow
--- NOTE | 2024-01-08 14:54 | CM ---
Alert awake oriented patient who lives alone in a 2 story home with 10 steps to enter and bed/bathroom on first floor. She is independent in driving and in all activities of daily living.She said she will be staying with [place] friend at [place].Offered VN
she declined.
No adaptive devices
Never had VN/SNF
Pharmacy [facility] [address] Gonzalez
PLAN Home no needs
[2024-01-08 15:16] VITALS: BP 116/80
[2024-01-08] MEDS: LOVENOX 40 MG SC (17:00)
[2024-01-08] MEDS: FLAGYL 500 MG PO ×2 (17:00→21:54)
[2024-01-08] MEDS: LEVAQUIN 750 MG PO (19:12)
[2024-01-08] MEDS: EFFEXOR XR 37.5 MG PO (21:54)
[2024-01-08 23:00] VITALS: BP 116/64
[2024-01-09] MEDS: SYNTHROID 75 MCG PO (06:14)
[2024-01-09 07:00] VITALS: BP 126/65
[2024-01-09] MEDS: FLAGYL 500 MG PO (07:46)
[2024-01-09] MEDS: NICODERM TRANSDERMAL 7 MG TRANSDERM (07:47)
--- NOTE | 2024-01-09 10:26 | W.PN.CRS1 ---
Today's Communication / Plan
-
dispo planning
Assessment/Plan
-
53 yo female presenting with uncomplicated diverticulitis with noted improvement on ABX
AFVSS
tolerating diet
Pain resolved
--No emergent surgery needed
--Ok for d/c from CRS standpoint on po abx
--ABX as per ID
--Continue LRD
--medical management as per primary team
--Plan OP follow up with primary GI
Subjective Data
Subjective Data
Date of Service: January 09, 2024
Patient seen and examined at bedside with Dr. Barreto. Denies pain. Passed a normal BM today. Denies n/v.
Objective Data
-
Vital Signs
Temp Pulse Resp BP Pulse Ox
98.6 F 59 16 126/65 97
01/09/24 07:00 01/09/24 07:00 01/09/24 07:00 01/09/24 07:00 01/09/24 07:00
Intake & Output
01/08/24 01/09/24 01/10/24
06:59 06:59 06:59
Intake Total 1200 / 1200
Balance 1200 / 1200
Intake:
Oral fluids 1200 / 1200
Other:
Number of approximated MODERATE 3 1
amounts of urine
Lab Results
01/08/24 05:26
01/08/24 05:26
Physical Exam
-
General: No Acute Distress
Abdomen: Soft, Non Distended and Non Tender
Skin: Warm
--- NOTE | 2024-01-09 11:24 | W.PN.HOSP.TC ---
Today's Communication/Plan
-
Discharge
Assessment / Plan
Assessment / Plan
Impression: 53-year-old female with PMH of uncomplicated diverticulitis, nephrolithiasis, depression who presented to ED on 01/07/2024. She was recently discharged 12/26 from this hospital on Augmentin twice daily, after being diagnosed of
uncomplicated diverticulitis and has continued to have abdominal pain without fever or change in BM. She denies chest pain, black stools, bloody stools, edema, rash, nausea, vomiting, or shortness of breath. She reports that patient been eating
and drinking okay and does not have any urinary symptoms.
CVS: S1-S2 normal
Chest: CTA B/L
Abdomen: Soft, NT , Bowel sounds present
Extremities: No edema, normal pulses
Impression/plan:
#Acute diverticulitis
-Tolerating diet. No pain
-CT abdomen/pelvis 01/07/2024 negative for abscess and free intraperitoneal air.
-Was on Augmentin outpatient, now on Levaquin and Flagyl.
#Hypothyroidism
-Continue Synthroid
#Anxiety/depression
-Controlled on Effexor.
#History of nephrolithiasis
-Hold Flomax
-She started taking Flomax thinking she has a kidney stone however none seen on the CAT scan therefore we will stop.
DVT PPx-Lovenox
CODE STATUS: Full code
Discussed with nursing
Anticipated Discharge: Today
Subjective/Interval History
-
Date of Service: January 09, 2024
Objective Data
-
Vital Signs:
Vital Signs
Temp Pulse Resp BP Pulse Ox
98.6 F 59 16 126/65 97
01/09/24 07:00 01/09/24 07:00 01/09/24 07:00 01/09/24 07:00 01/09/24 08:09
I&O
11/10/2301/09/24 01/10/24
06:59 06:59 06:59
Intake Total 1200 / 1200
Balance 1200 / 1200
--- NOTE | 2024-01-09 11:30 | W.DS.TRANS ---
Addendum entered and electronically signed by Ellen Summers MD 01/09/24 15:59:
Dictation- [id number]
Original Note:
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
-
Discharge Instructions:
Discharge Diagnosis/Procedures Diverticulitis in the sigmoid colon
Degenerative disc disease L5-S1
Hypothyroidism
Anxiety and depression
History of kidney stone
Diet Low Residue
Activity As tolerated
Driving Restrictions No driving
Instructions:
Stand-Alone Forms:
Changes to Home Medications: Yes
Discharge Medications:
DC Medications w/original date entered in Social Pulse
albuterol sulfate 90 mcg/actuation aerosol inhaler 2 puff inhalation R Q6HPRN PRN sob 12/09/22
levothyroxine 75 mcg tablet 75 mcg PO DAILY Thyroid 12/09/22
fluticasone propionate 50 mcg/actuation nasal spray,suspension 1 spray intranasal DAILYPRN PRN congestion 12/27/23
venlafaxine 37.5 mg capsule,extended release 24 hr (Effexor XR) 37.5 mg PO HS depression/anxiety 12/27/23
cetirizine 10 mg tablet (Zyrtec) 10 mg PO DAILYPRN PRN allergies 01/07/24
inulin 2 gram chewable tablet (Fiber Gummies) 6 g PO DAILY Supplement 01/07/24
therapeutic multivitamin 1 tab PO DAILY Supplement 01/07/24
levofloxacin 750 mg tablet 750 mg PO DAILY@2000 Infection #7 tabs 01/09/24
metronidazole 500 mg tablet 500 mg PO TID Infection #21 tabs 01/09/24
Home Medication Changes
AB changed to Levaquin and Flagyl
Pending Results: No
[2024-01-09] MEDS: AFLURIA (36 mos+) 2024-2025 FORMULA 0.5 ML IM (11:39)
[2024-01-09 11:48] VITALS: BP 120/71
== END 2024-01-09 12:07 | disposition home or self-care (01) | DRG 392 ==
LOC: 3 WEST ACU 17:23
PROVIDERS: Physician Assistant; ADMITTING PHYSICIAN Student in an Organized Health Care Education/Training Program; ATTENDING PHYSICIAN Hospitalist; CONSULT PHYSICIAN Surgery; EMERGENCY PHYSICIAN Emergency Medicine; FAMILY PHYSICIAN Nurse Practitioner Family; OTHER PHYSICIAN Internal Medicine Infectious Disease
DX: K57.32 Diverticulitis of large intestine without perforation or abscess without bleeding (principal); Z68.1 Body mass index [BMI] 19.9 or less, adult; F17.210 Nicotine dependence, cigarettes, uncomplicated; E03.9 Hypothyroidism, unspecified; F31.9 Bipolar disorder, unspecified; F41.9 Anxiety disorder, unspecified; M51.379 Other intervertebral disc degeneration, lumbosacral region without mention of lumbar back pain or lower extremity pain; R63.6 Underweight; Z59.89 Other problems related to housing and economic circumstances
CPT/HCPCS: 74177; 80048; 80053; 81003; 81015; 83690; 83735; 85025; 90686; 93005; 96365; 96375; 96376; 99285; 99406; G0008; Q9967

== ENCOUNTER 2024-02-28 16:29 | Emergency (ER) | payer MEDICARE, OTHER, SELFPAY ==
[2024-02-28 16:36] VITALS: BP 124/74
[2024-02-28 16:54] LABS: Urine Albumin Negative (Neg - Trace); Urine Bilirubin Negative (Negative); Urine Character Clear (Clear); Urine Color Yellow; Urine Glucose Negative (Negative); Urine Ketone Negative (Negative); Urine Leukocyte Trace (Negative); Urine Nitrite Negative (Negative); Urine Occult Blood 1+ (Negative); Urine Urobilinogen Negative (Neg - 1+)
[2024-02-28 16:55] LABS: % Basophils 0.8 % (0-2); % Eosinophils 4.8 % (0-6); % Immature Granulocytes 0.2 % (0-0.5); % Lymphocytes 23.1 % (20.5-51.1); % Monocytes 6.4 % (1.7-9.3); % Neutrophils 64.7 % (42.2-75.2); Absolute Basophils 0.1 10^3/uL (0-0.2); Absolute Eosinophils 0.4 10^3/uL (0-0.7); Absolute Lymphocytes 2.1 10^3/uL (1.2-3.4); Absolute Monocytes 0.6 10^3/uL (0.1-0.6); Absolute Neutrophils 5.8 10^3/uL (1.4-6.5); Hematocrit 44.9 % (37.0-47.0); Hemoglobin 15.4 g/dL (12.0-16.0); Mean Corp Hgb Conc. 34.3 g/dL (33.0-37.0); Mean Corpuscular Hgb 32.2 pg (27.0-31.0); Mean Corpuscular Volume 93.9 fL (81.0-99.0); Mean Platelet Volume 10.4 fL (7.4-10.4); Nucleated Red Blood Cells % 0 %; Platelet Count 340 10^3/uL (130-400); Red Blood Cell Count 4.78 10^6/uL (4.20-5.40); Red Cell Dist. Width 11.9 % (11.5-14.5)
[2024-02-28 17:05] LABS: Urine White Cell 0-2 /HPF (0-5)
[2024-02-28 17:09] LABS: HCG, Serum Qualitative Screen Negative
[2024-02-28 17:11] LABS: ALT (SGPT) 14 U/L (0-35); AST (SGOT) 18 U/L (14-36); Albumin 4.7 g/dl (3.5-5.0); Alkaline Phosphatase 89 U/L (38-126); Blood Urea Nitrogen 14 mg/dl (7-17); Calcium 9.7 mg/dl (8.4-10.2); Carbon Dioxide 26 mmol/L (22-30); Chloride 103 mmol/L (98-107); Glucose 101 mg/dl (70-99); Lipase 55 U/L (23-300); Potassium 4.2 mmol/L (3.5-5.1); Sodium 139 mmol/L (135-145); Total Bilirubin 0.4 mg/dl (0.2-1.3); Total Protein 7.2 g/dl (6.3-8.2); eGFR > 60.00
--- NOTE | 2024-02-28 18:27 | ED.GENMED ---
History of Present Illness
General
Chief Complaint: Abdominal Symptoms
Time Seen by Provider: 02/28/24 18:08
History of Present Illness
History of Present Illness:
54-year-old female without significant past medical history presenting to the emergency department for lower abdominal discomfort. Patient reports for the past 4 days she has had lower abdominal discomfort. Reports a few months ago she had
diverticulitis, however pain feels differently. Does report some foul odor to her urine, however denies dysuria. History of tubal ligation, otherwise no intra-abdominal surgeries. Denies fever. Denies vomiting. Denies changes in stool. Denies
chest pain or difficulty breathing. Pain has been constant. Denies additional acute medical complaints.
Past History
Past History
ED Past Medical History: Hypothyroidism, Psychiatric and Other (Kidney stones, diverticulitis, chronic sinusitis)
ED Past Surgical History: Other (ear)
Social History
Tobacco: Non-smoker
Alcohol: None
Drug: None
Personal: Single
Living: with family
Family History
Family History: Other (Noncontributory)
Phy Exam
Physical Exam
Physical Exam:
General: Well-appearing, no clinical signs of dehydration, nontoxic and in no acute distress
HEENT: protecting airway
Neck: appears supple
CV: Normal heart rate, regular rhythm
Resp: No accessory muscle use, no increased work of breathing, lungs clear to auscultation bilaterally
Abd: Soft and non-distended, focal tenderness to the right lower quadrant without rebound or guarding
Extremities: No deformities, no swelling
Neuro: alert, no focal neurologic deficit
: deferred
Rectal: deferred
Psych: Normal affect
Skin: Intact
Course
Orders/Labs/Results
Orders:
Orders
02/28/24 16:31
Test Result ONCE
02/28/24 16:46
Complete Blood Count/With Diff Urgent
Comprehensive Metabolic Panel Urgent
HCG, Serum Qualitative Screen Urgent
Comment: Notify provider if positive test present
Lipase Urgent
Urinalysis Reflex To Culture Urgent
Date Specimen was Collected: 02/28/24
Time Specimen was Collected: 16:31
Urine Microscopic Reflex Cult Urgent
02/28/24 18:26
CT Abd/pel W Iv And Oral Contr Urgent
Comment:
Reason For Exam: RLQ pain, r/o appe
Iohexol [Omnipaque] See Protocol PO NOW STA
Abnormal Lab Results
02/28/24
16:46
MCH 32.2 H pg
(27.0-31.0)
Glucose 101 H mg/dl
(70-99)
Ur Occult Blood Reflex 1+ A
(Negative)
Leukocyte Esterase Rfl Trace A
(Negative)
Urine RBC 3-6 A /HPF
(0-2)
02/28/24 16:46
02/28/24 16:46
Vital Signs
Initial and Last Documented VS:
Initial Vital Signs
Temp Pulse Resp BP Pulse Ox
98.7 F 85 16 124/74 98
02/28/24 16:36 02/28/24 16:36 02/28/24 16:36 02/28/24 16:36 02/28/24 16:36
Last Documented Vital Signs
Temp Pulse Resp BP Pulse Ox
98.7 F 85 16 127/54 99
02/28/24 16:36 02/28/24 16:36 02/28/24 16:36 02/28/24 21:33 02/28/24 21:34
MDM/Problems Addressed
MDM/Problems Addressed:
54-year-old female presenting to the emergency department for lower abdominal pain for the past 4 days. Vital signs on arrival are normal.
On exam patient is resting comfortably, no acute distress or discomfort. On exam, has focal tenderness to the right lower quadrant without rebound or guarding. Patient does note some foul odor to her urine, so cystitis is a consideration, however
with exam findings, cannot safely rule out acute appendicitis. Given BMI, will obtain CT IV and oral contrast.
22:20 - CT is negative, normal appendix. Given urinary symptoms and location of pain, will treat with antibiotics. Otherwise feel stable for discharge. Return precautions discussed and patient verbalized understanding
*Critical Care Note
Total Time (30-74mins, 75-104mins- exclusive of procedures): Not Applicable
ED Attending Note
-
Portions of this chart may have been created with voice recognition software.� Occasional wrong word or��sound alike� substitutions may have occurred due to the inherent limitations of voice recognition software.
Discharge Plan
Departure
Prescriptions:
No Action
levothyroxine 75 mcg Tablet
75 mcg PO DAILY
albuterol sulfate 90 mcg/actuation Hfa Aerosol Inhaler
2 puff INHALATION R Q6HPRN PRN (Reason: sob)
venlafaxine [Effexor XR] 37.5 mg Capsule,Extended Release 24hr
37.5 mg PO HS
fluticasone propionate 50 mcg/actuation [place],Suspension
1 spray INTRANASAL DAILYPRN PRN (Reason: congestion)
cetirizine [Zyrtec] 10 mg Tablet
10 mg PO DAILYPRN PRN (Reason: allergies)
therapeutic multivitamin Tablet
1 tab PO DAILY
Fiber Gummies 2 gram Tablet,Chewable
6 g PO DAILY
metronidazole 500 mg Tablet
500 mg PO TID Qty: 21 0RF
levofloxacin 750 mg Tablet
750 mg PO DAILY@2000 Qty: 7 0RF
Referrals:
Karen Gonzalez CRNP [Family Provider] -
Interventions
Interventions:
*Risk Screen - Suicide Last Done: 02/28/24 16:36
*General Assessment Last Done: 02/28/24 16:36
*Neglect/Abuse Screening Last Done: 02/28/24 16:36
ED- Fall Risk Assessment Last Done: 02/28/24 18:38
*ED COVID-19 Vaccine History Last Done: 02/28/24 16:36
FI-Xorsat-Jcnhynierv Assessment Last Done: 02/28/24 18:38
Discharge Date and Time
Print Language: CHINESE
[2024-02-28] MEDS: OMNIPAQUE 50 ML PO (18:33)
[2024-02-28 18:34] VITALS: BP 117/58
[2024-02-28 18:38] VITALS: BMI 16.7
[2024-02-28 19:00] VITALS: BP 117/66
[2024-02-28 20:00] VITALS: BP 122/68
[2024-02-28 21:33] VITALS: BP 127/54
[2024-02-28 22:00] VITALS: BP 116/51
[2024-02-28] MEDS: KEFLEX 500 MG PO (22:57)
== END 2024-02-28 23:05 | disposition home or self-care (01) ==
LOC: EMR 16:29
PROVIDERS: Emergency Medicine; EMERGENCY PHYSICIAN Student in an Organized Health Care Education/Training Program; FAMILY PHYSICIAN Nurse Practitioner Family
DX: N39.0 Urinary tract infection, site not specified (principal)
CPT/HCPCS: 99285; 74177; 80053; 81003; 81015; 83690; 84703; 85025; Q9967